=== PATIENT | male | born 1945 | race Caucasian/White ===

== ENCOUNTER → 2018-12-29 | Outpatient (CLI) | payer MEDICARE ==
[~2018-12-29] MED LIST: ASPIR-TRIN325 MG PO; COZAAR100 MG PO; LIPITOR10 MG PO; NIASPAN500 MG PO
--- NOTE | 2018-12-29 10:41 | Diagnostic Imaging Report ---
MRI of the right hip without contrast. History: Hip pain. Decreased range of motion. Pain not responding to conservative management. Right groin pain Technique: Multiplanar multisequence MRI of the hip without contrast. Findings: Prominent heterogeneous prostate gland measuring 5.0 cm medial to lateral. 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 Scattered degenerative change about the visualized lower lumbar spine and pelvis. No acute fracture, subluxation or avascular necrosis. 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 Mild underlying bone marrow edema with osteophytosis at the superior lateral femoral head. Degenerative type tearing of the labrum. Physiologic amount of fluid in the hip joint. The remainder of the visualized ligaments and tendons about the hip are intact. No evidence to suggest greater trochanteric bursitis. Right-sided insertional hamstring tendinosis with fraying at the inferior right ischium. The visualized muscles are otherwise normal in size, signal intensity and morphology. The visualized neurovascular bundles are intact. Small fat-containing right inguinal hernia. Nonspecific prominent vessels about the right pelvis most pronounced posteriorly best seen on series 6 image 9 and series 3 image 8. Impression: Prominent heterogeneous prostate gland measuring 5.0 cm medial to lateral. 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 Correlate with laboratory analysis/PSA. 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 Right-sided insertional hamstring tendinosis with fraying at the inferior right ischium. Small fat-containing right inguinal hernia. Signed by: Dr. Garry Jones M.D. on 12/29/2018 10:38 AM
== END ==
LOC: MRI 09:11
PROVIDERS: ATTEND Internal Medicine
DX: M25.551 Pain in right hip (principal)

== ENCOUNTER → 2021-04-09 | Outpatient (CLI) | payer MEDICARE ==
[~2021-04-09] MED LIST changes: +CIPRO500 MG PO; +HYDROCHLOROTHIA25 MG; +SIMVASTATIN40 MG PO
== END ==
LOC: CT 14:17
PROVIDERS: ATTEND Family Medicine
DX: S09.90XA Unspecified injury of head, initial encounter (principal)
CPT/HCPCS: 70450

== ENCOUNTER → 2023-03-02 | Day surgery (SDC) | payer MEDICARE ==
[2023-02-26 10:20] LABS: BASOPHILS % 0.4 % (0.0-1.0); EOSINOPHILS # (AUTO) 0.1 (0.0-0.4); EOSINOPHILS % 1.4 % (0.0-6.0); HEMATOCRIT 42.3 % (38.2-49.6); HEMOGLOBIN 14.5 g/dL (14.0-18.0); LYMPHOCYTES # (AUTO) 0.9 (1.0-3.2); LYMPHOCYTES % 13.2 % (18.0-39.1); MEAN CORPUSCULAR HEMOGLOBIN 33.5 pg (28-32); MEAN CORPUSCULAR HGB CONC 34.3 g/dL (31-35); MEAN CORPUSCULAR VOLUME 97.7 fL (81-99); MONOCYTES # (AUTO) 0.5 (0.2-0.8); MONOCYTES % 6.9 % (4.4-11.3); NEUTROPHILS # (AUTO) 5.4 (2.1-6.9); NEUTROPHILS % 77.5 % (38.7-80.0); PLATELET COUNT 146 x10e3/uL (140-360); RED BLOOD COUNT 4.33 x10e6/uL (4.3-5.7); RED CELL DISTRIBUTION WIDTH 12.9 % (11.7-14.4); WHITE BLOOD COUNT 6.95 x10e3/uL (4.8-10.8)
[2023-02-26 10:57] LABS: ANION GAP 13.4 mmol/L (8-16); CALCIUM 9.7 mg/dL (8.4-10.2); CREATININE, SERUM 1.03 mg/dL (0.72-1.25); POTASSIUM 4.4 mmol/L (3.5-5.1)
[~2023-03-02] MED LIST changes: +ACETAMINOPHEN/CODEINE 300MG - 30MG TAB ONE; +CRANBERRY465 MG PO; +DEXAMETHASONE SOD PHOS INJ 4 MG/ML SDV ONE; +FENTANYL CITRATE/PF 100MCG/2 ML INJ ONE; +FLAXSEED1000 MG PO; +FLOMAX0.4 MG PO; +LACTATED RINGER'S 1,000 ML ONE; +LIDOCAINE HCL 2% LOCAL INJ 5 ML SDV VIAL INJ ONE; +LOSARTAN-HCTZ1 EAC2 PO; +MELOXICAM7.5 MG PO; +MONTELUKAST SOD10 MG PO; +MULTI-VITAMIN1 EACH PO; +ONDANSETRON HCL INJ 2MG/ML 2ML 2 MG/ML VIAL ONE; +PROPOFOL IV EMULSION 10 MG/ML 20 ML VIAL ONE; +PROTONIX20 MG PO; +REVATIO20 MG PO; +SEVOFLURANE INHAL SOLN 250 ML PEN BTL ONE; +VALACYCLOVIR500 MG PO
[2023-03-02 10:26] VITALS: TEMP 97.5
[2023-03-02 11:20] VITALS: BP 178/88; PULSE 62; RESP 17; O2SAT 97
== END | disposition home or self-care (01) ==
LOC: OR 07:01
PROVIDERS: ATTEND Specialist
DX: G56.03 Carpal tunnel syndrome, bilateral upper limbs (principal); I10 Essential (primary) hypertension; E78.5 Hyperlipidemia, unspecified; K21.9 Gastro-esophageal reflux disease without esophagitis; Z88.8 Allergy status to other drugs, medicaments and biological substances; Z01.810 Encounter for preprocedural cardiovascular examination; Z01.812 Encounter for preprocedural laboratory examination; Z01.818 Encounter for other preprocedural examination; Z79.1 Long term (current) use of non-steroidal anti-inflammatories (NSAID); Z79.899 Other long term (current) drug therapy; Z85.828 Personal history of other malignant neoplasm of skin
CPT/HCPCS: 29848; 36415; 71046; 80048; 85025; 93005; J0690; J1100; J2001; J2405; J2704; J3010; J7121